=== PATIENT | male | born 1995 | race African-American/Black ===

== ENCOUNTER 2018-03-08 19:45 | Emergency (ER) | payer SELFPAY ==
--- NOTE | 2018-03-08 20:14 | RAD ---
AP VIEW CHEST: INDICATIONS: Asthma. COMPARISON: None. FINDINGS: The lungs are clear. The cardiomediastinal silhouette is normal. No pleural effusion or pneumothora x is evident. No acute osseous abnormality is evident. IMPRESSION: No acute cardiopulmonary abnormality. POS: [facility]
[2018-03-08] MEDS ORDERED: Magnesium Sulfate 2 GM/100 ML BAG ONE (21:05)
[2018-03-08] MEDS ORDERED: Water For Inject, Bacteriostat 30 ML ONE (21:05)
[2018-03-08] MEDS ORDERED: methylPREDNISolone Sod Succ/PF 125 MG/2 ML VIAL ONE (21:05)
== END 2018-03-09 03:08 | disposition home or self-care (01) ==
LOC: ERS 19:45
DX: J45.901 Unspecified asthma with (acute) exacerbation (principal); F32.9 Major depressive disorder, single episode, unspecified
CPT/HCPCS: 71045; 94640; 94760; 96374; 96375; J2930; J3475; J7620

== ENCOUNTER 2019-01-26 17:45 | Emergency (ER) | payer SELFPAY | END 2019-01-26 18:58 | disposition home or self-care (01) | LOC: ERS 17:45 | DX: J45.901 Unspecified asthma with (acute) exacerbation (principal) | CPT/HCPCS: 94640 ==

== ENCOUNTER 2019-02-10 21:48 | Emergency (ER) | payer SELFPAY ==
--- NOTE | 2019-02-10 22:54 | RAD ---
CHEST TWO VIEWS: 02/10/19 HISTORY: Dyspnea. COMPARISON: None. FINDINGS: Lungs are clear. No pneumothorax or effusion. The cardiac silhouette and mediastinal contours are wit hin normal limits. IMPRESSION: No acute intrathoracic abnormality. POS: [facility]
[2019-02-10] MEDS ORDERED: predniSONE 20 MG TAB ONE (23:31)
== END 2019-02-11 00:06 | disposition home or self-care (01) ==
LOC: ERS 21:48
DX: J45.901 Unspecified asthma with (acute) exacerbation (principal); F32.9 Major depressive disorder, single episode, unspecified; Z79.51 Long term (current) use of inhaled steroids
CPT/HCPCS: 71046; J7620